=== PATIENT | female | born 2000 | race Hispanic/Latino ===

== ENCOUNTER 2022-02-19 17:08 | Inpatient (IN) | payer BC ==
[~2022-02-19 17:08] MED LIST: Iopamidol-370 76% 500 ML 1 ML ONE
[2022-02-19 17:40] LABS: Hemoglobin 13.1 g/dL (12.0-16.0); Mean Corpuscular HGB CONC 33.2 g/dL (32.0-36.0); Mean Corpuscular Hemoglobin 28.1 pg (27.0-31.0); Mean Corpuscular Volume 84.7 fl (78.0-98.0); Mean Platelet Volume 7.2 fL (7.4-10.4); Platelet Count 311 10x3/uL (130-400); Red Blood Cell (RBC) Count 4.66 mill/uL (4.20-5.40); White Blood Cell (WBC) Count 24.1 10x3/uL (4.8-10.8)
[2022-02-19] MEDS ORDERED: Ondansetron PF 4 MG/2 ML Vial ONE (17:50)
[2022-02-19] MEDS ORDERED: Ketorolac Tromethamine 30 MG/ML VIAL ONE ×2 (17:50→20:00)
[2022-02-19 18:01] LABS: ALT (SGPT) 12 U/L (8-55); AST (SGOT) 13 U/L (5-34); Albumin 3.6 g/dL (3.5-5.0); Alkaline Phosphatase 83 U/L (40-110); Anion Gap 14 mmol/L (10-20); BUN (Urea Nitrogen) 11 mg/dL (7.0-18.7); Bilirubin, Total 0.8 mg/dL (0.2-1.2); Calc. Creatinine Clearance 0 mL/min (70-130); Calcium 8.9 mg/dL (7.8-10.44); Carbon Dioxide 22 mmol/L (22-29); Chloride 103 mmol/L (98-107); Estimated GFR 76; Globulin 3.6 g/dL (2.4-3.5); Glucose 84 mg/dL (70-105); Potassium 3.6 mmol/L (3.5-5.1); Protein, Total 7.2 g/dL (6.0-8.3); Sodium 135 mmol/L (136-145)
[2022-02-19 18:02] LABS: Band 10 % (5-11); Lymphocytes 4 % (21-51); MDiff Complete? YES; Monocytes 5 % (0-10); Neutrophil 81 % (42-75); Platelet Morphology Comment Appears Adequate
[2022-02-19] MEDS ORDERED: cefTRIAXone\\ROCEPHIN 1 GM VIAL ONE (18:43)
[2022-02-19 19:29] LABS: INR-International Normal Ratio 1.3
[2022-02-19 19:30] LABS: PTT 42.1 sec (22.9-36.1)
[2022-02-19 20:08] LABS: Bilirubin Negative (Negative); Blood, Urine Negative (Negative); Clarity Clear (Clear); Glucose, Urine (Dipstick) Normal (Negative); Ketone, Urine 60 mg/dL (Negative); Leukocyte 75 Leu/uL (Negative); Mucous/LPF Rare LPF (<2+); Nitrite Negative (Negative); Protein, Urine (Dipstick) 30 mg/dL (Neg-Trace); RBC/HPF 0-3 HPF (0-3); Specific Gravity, Urine 1.035 (1.002-1.036); Urobilinogen Normal mg/dL (Less than 2)
[2022-02-19 20:10] LABS: Pregnancy Test - Urine (BHCG) Negative (Negative); Pregu Control Background? CLEAR/WHITE (CLR/WHITE); Pregu Control Bar Appear? YES (CONTROL BAR); Specific Gravity 1.035 (1.002-1.036)
[2022-02-19 20:16] LABS: Bacteria/HPF 2+ HPF (None Seen)
[2022-02-19] MEDS ORDERED: Morphine 4 MG/ML VIAL ONE (20:20)
[2022-02-19] MEDS ORDERED: Vancomycin 1 GM/200 ML (FROZEN) BAG ONE (21:58)
[2022-02-19] MEDS ORDERED: Ondansetron PF 4 MG/2 ML Vial IVP PRN (22:13)
[2022-02-19] MEDS ORDERED: Acetaminophen 650 MG Suppository PR PRN (22:13)
[2022-02-19] MEDS ORDERED: Ondansetron ODT 4 MG TAB PO PRN (22:13)
[2022-02-19] MEDS ORDERED: Acetaminophen 325 MG TAB PO PRN (22:13)
[2022-02-19] MEDS ORDERED: Sodium Chloride 0.9% 1,000 ML IV SCH (22:15)
[2022-02-19] MEDS ORDERED: Piperacillin/Tazobactam 4.5 GM VIAL ONE (23:38)
[2022-02-19] MEDS ORDERED: Piperacillin/Tazobactam 3.375 GM in Sodium Chloride 0.9% 100 ML IVPB SCH (23:59)
[2022-02-20] MEDS ORDERED: Morphine 4 MG/ML VIAL ONE ×2 (00:04→03:58)
[2022-02-20] MEDS ORDERED: Ondansetron ODT 4 MG TAB ONE (00:27)
[2022-02-20] MEDS ORDERED: Ondansetron PF 4 MG/2 ML Vial ONE (02:02)
[2022-02-20] MEDS ORDERED: Piperacillin/Tazobactam 3.375 GM in Sodium Chloride 0.9% 100 ML IVPB SCH (04:00)
[2022-02-20 06:31] LABS: SARS-CoV-2 NAA Rapid Test Not Detected (NotDetected)
== END 2022-02-20 04:05 | disposition short-term general hospital (02) | DRG 871 ==
LOC: ERS 17:08 → SJJU 21:42 → OBSVTOIN 21:42 → ERHOLD 23:17
PROVIDERS: ADMIT Student in an Organized Health Care Education/Training Program; ATTEND Nurse Practitioner Acute Care
DX: A41.9 Sepsis, unspecified organism (principal); N15.1 Renal and perinephric abscess; N10 Acute pyelonephritis; Z20.822 Contact with and (suspected) exposure to COVID-19; Z90.49 Acquired absence of other specified parts of digestive tract
CPT/HCPCS: 36415; 74177; 80053; 81003; 81015; 81025; 83605; 83690; 85025; 85610; 85730; 87040; 87086; J0696; J1885; J2270; J2405; J2543; J3370-JW; Q0162; Q9967; U0002